=== PATIENT | female | born 1960 | race Caucasian/White ===

== ENCOUNTER → 2018-04-13 06:29 | Outpatient (CLI) | payer BC | END | disposition home or self-care (01) | LOC: D.MRI 04-10 15:30 | DX: M25.562 Pain in left knee (principal) ==

== ENCOUNTER → 2018-05-09 20:10 | Outpatient (CLI) | payer BC | END | disposition home or self-care (01) | LOC: D.MAMMO 13:00 | DX: Z12.31 Encounter for screening mammogram for malignant neoplasm of breast (principal) ==

== ENCOUNTER 2019-12-31 10:00 | Outpatient (CLI) | payer BC | END 2019-12-31 10:30 | disposition home or self-care (01) | LOC: D.MAMMO 10:00 | PROVIDERS: ATTEND Family Medicine | DX: N64.4 Mastodynia (principal) ==